=== PATIENT | male | born 1950 | race Caucasian/White ===

== ENCOUNTER 2023-03-27 19:05 | Inpatient (IN) | payer MEDICARE ==
[~2023-03-27] VITALS: Ht 172.7 cm; Wt 97.5 kg
[2023-03-27 19:12] VITALS: BP 114/77; PULSE 119; RESP 44; O2SAT 96
--- NOTE | 2023-03-27 19:17 | NUR ---
KEYA FROM HOME FOR ALTERED MENTAL STATUS, LAST KNOWN WELL 1700 03/26/23 SOB. PMH: DM MEDS: METFORMIN
[2023-03-27] MEDS ORDERED: NACL 0.9% 2,000 ML IV ONE (19:20)
--- NOTE | 2023-03-27 19:29 | NUR ---
RECEIVED IN BED 10, BIBAllison, FROM HOME FOR ALTERED MENTAL STATUS, LAST KNOWN WELL 1700 03/26/23 SOB. PMH: DM MEDS: METFORMIN
[2023-03-27] MEDS ORDERED: cefTRIAXone 1,000 MG VIAL ONE (19:31)
--- NOTE | 2023-03-27 19:50 | NUR ---
TO CT VIA [facility]
--- NOTE | 2023-03-27 19:57 | NUR ---
RETURNED FROM CT
--- NOTE | 2023-03-27 20:04 | NUR ---
XRAY AT BEDSIDE
--- NOTE | 2023-03-27 20:17 | NUR ---
2ND IV ESTABLISHED, LABS AND BLOOD CULTURES DRAWN
[2023-03-27 20:33] LABS: BASOPHILS % (AUTO) 0.1 % (0.0-2.0); HEMATOCRIT 41.1 % (36-52); HEMOGLOBIN 13.8 g/dL (12.0-18.0); LYMPHOCYTES # (AUTO) 0.5 K/uL (2.0-11.5); LYMPHOCYTES % (AUTO) 2.8 % (20.5-51.1); MEAN CORPUSCULAR HEMOGLOBIN 30 pg (27-31); MEAN CORPUSCULAR HGB CONC 34 g/dL (33-37); MEAN CORPUSCULAR VOLUME 88.7 fL (80-94); MONOCYTES # (AUTO) 0.5 K/uL (0.8-1.0); MONOCYTES % (AUTO) 3.1 % (1.7-9.3); PLATELET COUNT (AUTO) 185 K/uL (140-450); RED BLOOD CELL COUNT(AUTO) 4.64 MIL/uL (4.20-6.10); RED CELL DISTRIBUTION WIDTH 14.7 % (11.6-13.7); WHITE BLOOD COUNT (AUTO) 17.1 K/uL (4.8-10.8)
[2023-03-27 20:57] LABS: ALBUMIN 2.2 g/dL (3.4-5.0); ANION GAP 23.1 (8-16); ASPARTATE AMINOTRANSFERASE 709 U/L (15-37); CARBON DIOXIDE 13.4 mmol/L (21-32); CHLORIDE 113 mmol/L (98-107); CREATININE 3.7 mg/dL (0.6-1.3); GLUCOSE 166 mg/dL (74-106); POTASSIUM 3.5 mmol/L (3.5-5.1); SODIUM SERUM 146 mmol/L (136-145); TOTAL BILIRUBIN 0.7 mg/dL (0.0-1.0); UREA NITROGEN, BLOOD 56 mg/dL (7-18)
[2023-03-27 21:10] LABS: SALICYLATE 6.8 mg/dL (2.8-20.0)
[2023-03-27] MEDS ORDERED: NACL 0.9% 1,000 ML IV ONE ×2 (21:30→22:05)
[2023-03-27 21:40] LABS: APPEARANCE,URINE CLOUDY (CLEAR); BILIRUBIN,URINE 1+ (NEGATIVE); BLOOD, URINE 3+ (NEGATIVE); COLOR,URINE YELLOW (YELLOW); LEUKOCYTE ESTERASE ,URINE 2+ (NEGATIVE); NITRITE, URINE NEGATIVE (NEGATIVE); UGLUCOSE NEGATIVE (NEGATIVE)
--- NOTE | 2023-03-27 21:45 | NUR ---
FAMILY AT BEDSIDE
[2023-03-27 21:53] LABS: CALCIUM OXALATE CRYSTALS,UR None Seen /HPF (None Seen); COARSE GRANULAR CASTS,URINE None Seen /LPF (None Seen); FINE GRANULAR CASTS,URINE None Seen /LPF (None Seen); HYALINE CASTS, URINE None Seen /LPF (None Seen); OTHER CASTS, URINE None Seen /LPF (None Seen); OTHER CRYSTALS,URINE None Seen /HPF (None Seen); RED BLOOD CELL CASTS,URINE None Seen /LPF (None Seen); TRICHOMONAS,URINE None Seen /HPF (None Seen); TRIPLE PHOSPHATE CRYSTAL,UR None Seen /HPF (None Seen); URIC ACID CRYSTALS,URINE None Seen /HPF (None Seen); URINE AMORPHOUS URATE None Seen /HPF (None Seen); WAXY CASTS,URINE None Seen /LPF (None Seen); YEAST,URINE None Seen /HPF (None Seen)
[2023-03-27 22:01] LABS: CKMB RELATIVE INDEX 2.1 (0.0-2.5); CREATINE KINASE MB 408.3 ng/mL (0-3.6)
--- NOTE | 2023-03-27 22:01 | NUR ---
Dr. Rivera examining patient.
[2023-03-27 22:03] LABS: ACETAMINOPHEN < 0.5 ug/ml (10-30)
[2023-03-27] MEDS ORDERED: ASPIRIN 325 MG TAB PO ONE (22:15)
[2023-03-27 22:31] LABS: BARBITURATE, URINE NEGATIVE ng/ml (NEG <=200); BENZODIAZEPINE, URINE NEGATIVE ng/mL (NEG <=200); CANNABINOID, URINE NEGATIVE ng/mL (NEG <=50); COCAINE, URINE NEGATIVE ng/mL (NEG <=300); OPIATE, URINE NEGATIVE ng/mL (NEG <=2000); PHENCYCLIDINE SCREEN,URINE NEGATIVE ng/mL (NEG <=25)
[2023-03-27] MEDS ORDERED: LORazepam 2 MG/ML VIAL IVP PRN (22:45)
[2023-03-27] MEDS ORDERED: NACL 0.9% 1,000 ML IV SCH (22:45)
[2023-03-27] MEDS ORDERED: ACETAMINOPHEN 325 MG TAB PO PRN (22:45)
[2023-03-27] MEDS ORDERED: MORPHINE SULFATE 2 MG/ML SYR IVP PRN (22:45)
[2023-03-27] MEDS ORDERED: HYDROcodone/APAP 5/325 MG 1 TAB TAB PO PRN (22:45)
[2023-03-27] MEDS ORDERED: ONDANSETRON 4 MG/2 ML VIAL IVP PRN (22:45)
--- NOTE | 2023-03-27 23:00 | NUR ---
Ham lizama in [facility] - 03/27/23 at 2303 by [employer], DR. GRIFFITHS, SPEAKING WITH PT VIA REMOTE COMMUNICATION
[2023-03-28] VITALS (17 sets, daily range): BP systolic 94–126; BP diastolic 54–87; PULSE 105–149; RESP 24–40; TEMP 96.7–97.6; O2SAT 93–97
--- NOTE | 2023-03-28 00:06 | NUR ---
PT TAKEN TO CT
--- NOTE | 2023-03-28 01:00 | NUR ---
REPOSITIONED FOR COMFORT.
--- NOTE | 2023-03-28 04:00 | NUR ---
AWAKE, ASKING FOR WATER. PT INFORMED OF BEING NPO. ASSISTED WITH POSITIONING FOR COMFORT
[2023-03-28] MEDS ORDERED: PIPERACILLIN/TAZOBACTAM 2.25 GM in DEXTROSE 5% 50 ML IV SCH (05:00)
--- NOTE | 2023-03-28 06:00 | NUR ---
LAB AT BEDSIDE
[2023-03-28] MEDS ORDERED: PIPERACILLIN/TAZOBACTAM 2.25 GM VIAL IV ONE ×2 (06:05→07:51)
[2023-03-28 06:47] LABS: EOSINOPHILS % (AUTO) 0.2 % (0.0-4.0); HEMATOCRIT 41.2 % (36-52); HEMOGLOBIN 13.6 g/dL (12.0-18.0); LYMPHOCYTES # (AUTO) 0.4 K/uL (2.0-11.5); LYMPHOCYTES % (AUTO) 3.2 % (20.5-51.1); MEAN CORPUSCULAR HEMOGLOBIN 30 pg (27-31); MEAN CORPUSCULAR HGB CONC 33 g/dL (33-37); MEAN CORPUSCULAR VOLUME 89.5 fL (80-94); MONOCYTES # (AUTO) 0.4 K/uL (0.8-1.0); MONOCYTES % (AUTO) 3.2 % (1.7-9.3); NEUTROPHILS # (AUTO) 12.6 K/uL (1.8-7.7); NEUTROPHILS % (AUTO) 93.4 % (42.2-75.2); PLATELET COUNT (AUTO) 165 K/uL (140-450); RED CELL DISTRIBUTION WIDTH 14.9 % (11.6-13.7); WHITE BLOOD COUNT (AUTO) 13.5 K/uL (4.8-10.8)
[2023-03-28 07:01] LABS: ALBUMIN 2.1 g/dL (3.4-5.0); ANION GAP 26.1 (8-16); ASPARTATE AMINOTRANSFERASE 685 U/L (15-37); CARBON DIOXIDE 12.4 mmol/L (21-32); CHLORIDE 111 mmol/L (98-107); CREATININE 4.9 mg/dL (0.6-1.3); GLUCOSE 212 mg/dL (74-106); MAGNESIUM 2.6 mg/dL (1.8-2.4); PHOSPHORUS 7.4 mg/dL (2.5-4.9); POTASSIUM 4.5 mmol/L (3.5-5.1); SODIUM SERUM 145 mmol/L (136-145); TOTAL BILIRUBIN 0.6 mg/dL (0.0-1.0)
[2023-03-28 07:02] LABS: UREA NITROGEN, BLOOD 75 mg/dL (7-18)
--- NOTE | 2023-03-28 08:33 | NUR ---
PAGED DR MCMULLEN REGARDING PTS CONDITION.
[2023-03-28] MEDS ORDERED: AZITHROMYCIN 250 MG TAB PO SCH (09:00)
--- NOTE | 2023-03-28 09:06 | NUR ---
PATIENT HAS BEEN SCREENED AND CATEGORIZED MODERATE NUTRITION RISK. PATIENT WILL BE SEEN WITHIN 3-5 DAYS OF ADMISSION. 03/30/23-04/01/[address]
--- NOTE | 2023-03-28 09:15 | NUR ---
DR MCNEIL AT BEDSIDE TO SEE PT
[2023-03-28] MEDS ORDERED: ceFAZolin 1,000 MG VIAL ONE (09:55)
--- NOTE | 2023-03-28 10:45 | NUR ---
RT AT BEDSIDE FOR ABG
--- NOTE | 2023-03-28 11:13 | NUR ---
RELAYED ABG RESULTS TO ER DOCTOR. CALLED AND LEFT MESSAGE FOR DR. CARVAJAL AND SENT MESSAGE TO DR RODRIGUEZ. WAS INSTRUCTED CALL FIELD SERVICER ELEVATOR ADJUSTER. LEFT MESSAGE FOR DR. LUIS. WAITING FOR CALL BACK.
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
--- NOTE | 2023-03-28 11:22 | NUR ---
PT EKG COMPLETED, AFIB RVR, PAGED DR CHRIS FOR FURTHER ORDERS.
--- NOTE | 2023-03-28 11:25 | NUR ---
TRANSFERRED TO ICU-3; REMOVED FROM VAPOTHERM HIGH FLOW PLACED ON SUPPLEMENTAL OXYGEN AT 4 LPM VIA NS SATURATION 96% HR 135; TOLERATED TRANSFER WELL WITHOUT COMPLICATIONS NOTED
--- NOTE | 2023-03-28 11:25 | NUR ---
Arrived in ICU with RN, and EMT, pt. on transfer monitor. No acute distress. Primary RN Olga and charge nurse at bedside. Pt. with no acute distress.
[2023-03-28] MEDS ORDERED: DILTIAZEM 25 MG/5 ML VIAL IVP SCH (11:29)
--- NOTE | 2023-03-28 11:31 | NUR ---
Patient will be admitted to care of MD SONG . Admited to ICU. Will go to room BED 3. Belongings list completed. Report to BALJIT Espinoza.
--- NOTE | 2023-03-28 11:32 | NUR ---
PLACED BACK ON A VAPOTHERM HIGH FLOW NASAL CANNULA
[2023-03-28] MEDS: SODIUM BICARBONATE 8.4% 100 MEQ in NACL 0.45% 1,000 ML IV SCH (12:37)
[2023-03-28] MEDS: AZITHROMYCIN 500 MG in DEXTROSE 5% 250 ML IV SCH (12:38)
--- NOTE | 2023-03-28 13:50 | NUR ---
DR. TONEY LUIS ROUNDING AT BEDSIDE; REVIEWED ABG RESULTS AND CXR; [facility] DR. LUIS: BIPAP PRN; HHN THERAPY DUONEB Q6 AND PRN SOB/WHEEZE; OXYGEN SATURATION GREATER THAN 90%; ABG AM (03/28) 0800
--- NOTE | 2023-03-28 13:50 | NUR ---
Dr. Jordan at bedside rounding on pt. MD ordered 2 amps of Bicarb 100 mEq IV push now. See eMar for details. Pt. with no change in status.
[2023-03-28] MEDS ORDERED: SODIUM BICARBONATE 8.4% PFS 50 MEQ/50 ML SYR IVP ONE (14:12)
[2023-03-28] MEDS ORDERED: SODIUM BICARBONATE 8.4% PFS 50 MEQ/50 ML SYR IVP SCH (14:12)
[2023-03-28] MEDS ORDERED: ALBUTEROL SULFATE/IPRATROPIU 3 ML SOL IH PRN (14:40)
[2023-03-28] MEDS: DILTIAZEM 125 MG in DEXTROSE 5% 100 ML IV SCH ×2 (15:11→15:12)
[2023-03-28 15:34] LABS: URINE TOTAL PROTEIN 286.9 mg/dL (0-12)
[2023-03-28] MEDS ORDERED: DEXTROSE 50% 50 ML SYR IVP PRN (15:40)
--- NOTE | 2023-03-28 15:54 | NUR ---
[facility] V60 BIPAP PLACED AT BEDSIDE; HHN PRN THERAPY GIVEN AT THIS TIME; SALES AND MARKETING VICE PRESIDENT TO MONITOR
[2023-03-28] MEDS: BLOOD GLUCOSE MONITORING 1 DEV DEV FS SCH ×2 (16:37→21:05)
[2023-03-28] MEDS: INSULIN LISPRO SLIDING SCALE 100 UNITS/ML VIAL SUBQ PRN (16:40)
[2023-03-28] MEDS ORDERED: AMIODARONE 150 MG in DEXTROSE 5% 100 ML IV SCH (16:50)
[2023-03-28] MEDS: AMIODARONE 450 MG in DEXTROSE 5% 250 ML IV SCH (17:12)
--- NOTE | 2023-03-28 19:15 | NUR ---
closing Pt remains on amiodarone drip, 6 hour ame 2317. Updates given earlier to pt's son Malcolm Thomas Endorsed plan of care to RN.
[2023-03-28] MEDS: ALBUTEROL SULFATE/IPRATROPIU 3 ML SOL IH SCH (19:16)
--- NOTE | 2023-03-28 19:20 | NUR ---
RECEIVED REPORT FROM SCOTT SMILEY DAYSHIFT NURSE. PT IS AWAKE, DROWSY AND ORIENTED 2X. PT IS ON HIGH FLOW 40L/MIN FIO2 35% O2SAT 94% . AFIB NOTED ON THE MONITOR. ABDOMEN IS LARGE AND SOFT. PERIPHERAL IV NOTED TO R WRIST WITH SODIUM BICARBONATE IN 1/2 NS AT 75ML/HR AND R FOREARM IV ACCESS WITH NS AT 5ML/HR AND AMIODARONE 450MG AT 1 MG/MIN. PT HAS WILSON CATHETER DRAINING DARK YELLOW. MULTIPLE WOUNDS NOTED. SEE ASSESSMENT NOTES. WILL CONTINUE TO MONITOR PT.
--- NOTE | 2023-03-28 21:30 | NUR ---
PT PASSED SMALL AMOUNT OF BROWN SOFT STOOL. CLEANED AND REPOSITIONED. KEPT COMFORTABLE.
--- NOTE | 2023-03-28 23:15 | NUR ---
AMIODARONE DRIP DECREASED TO 0.5MG/MIN PER PROTOCOL. AFIB STILL NOTED. HR 28
[2023-03-29] VITALS (35 sets, daily range): BP systolic 93–129; BP diastolic 57–81; PULSE 91–125; RESP 5–37; TEMP 97–98.6; O2SAT 91–99
[2023-03-29] MEDS: ALBUTEROL SULFATE/IPRATROPIU 3 ML SOL IH SCH ×4 (00:43→19:00)
[2023-03-29] MEDS: SODIUM BICARBONATE 8.4% 100 MEQ in NACL 0.45% 1,000 ML IV SCH ×2 (03:36→19:06)
[2023-03-29] MEDS: AMIODARONE 450 MG in DEXTROSE 5% 250 ML IV SCH ×2 (03:55→22:30)
--- NOTE | 2023-03-29 07:00 | NUR ---
RECEIVED PT ON HFNC 35%,40L,33 DEGREE. SATURATION 96% NO DISTRESS NOTED. ABG SCHEDULED FOR 0800. WILL CONTINUE TO MONITOR.
--- NOTE | 2023-03-29 07:20 | NUR ---
ENDORSED PT TO DAYSHIFT NURSE FOR CONTINUITY OF CARE. ALL QUESTIONS ANSWERED.
[2023-03-29] MEDS: BLOOD GLUCOSE MONITORING 1 DEV DEV FS SCH ×4 (07:30→21:00)
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
--- NOTE | 2023-03-29 08:05 | NUR ---
ABG RESULTS CHARTED AND GIVEN TO EDISCOVERY PROJECT MANAGER.
[2023-03-29 10:26] LABS: PROTHROMBIN TIME 11.3 secs (10.8-13.4)
[2023-03-29 10:28] LABS: ALBUMIN 1.7 g/dL (3.4-5.0); ANION GAP 24.5 (8-16); ASPARTATE AMINOTRANSFERASE 455 U/L (15-37); CARBON DIOXIDE 16.2 mmol/L (21-32); CHLORIDE 105 mmol/L (98-107); GLUCOSE 205 mg/dL (74-106); POTASSIUM 4.7 mmol/L (3.5-5.1); SODIUM SERUM 141 mmol/L (136-145); TOTAL BILIRUBIN 0.5 mg/dL (0.0-1.0)
[2023-03-29 10:29] LABS: CREATININE 6.4 mg/dL (0.6-1.3); UREA NITROGEN, BLOOD 112 mg/dL (7-18)
--- NOTE | 2023-03-29 10:30 | NUR ---
CALL DR. VANESSA REPORT THE LAB RESULT, WILL COME TO SEE THE PATIENT.
[2023-03-29] MEDS ORDERED: VANCOMYCIN PER PHARMACY MC PRN (10:45)
--- NOTE | 2023-03-29 10:48 | NUR ---
HFNC ON STANDBY. PER DR. LUIS PT PLACED ON 15L CURAPLEX. CALL LIGHT WITHIN REACH.WILL CONTINUE TO MONITOR.
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
[2023-03-29] MEDS ORDERED: VANCOMYCIN 1,500 MG in DEXTROSE 5% 500 ML IV SCH (12:00)
--- NOTE | 2023-03-29 13:23 | NUR ---
03/29/23 RD INITIAL ASSESSMENT COMPLETED PLEASE REFER TO NUTRITION ASSESSMENT UNDER CARE ACTIVITY FOR ESTIMATED NUTRITIONAL NEEDS. 1. CONTINUE NPO DIET TOLERATED AND RD WILL BE PENDING SWALLOW EVALUTION TO SEE WHAT TEXTURE PATIENT WILL HAVE. RD RECOMMENDS CCHO 60GMS/CARDIAC ONCE MEDICALLY APPROPRIATE. 2. RD RECOMMENDS PROSOURCE BID FOR WOUNDS WHICH WILL PROVIDE 120 CALORIES AND 30 GRAMS OF PROTEIN ONCE MEDICALLY APPROPRIATE. 3. RD TO FOLLOW-UP 2-3 DAYS, HIGH RISK PHUONG BEN[address]TE[address] RD
[2023-03-29] MEDS: AZITHROMYCIN 500 MG in DEXTROSE 5% 250 ML IV SCH (14:21)
[2023-03-29] MEDS: ECOTRIN 81 MG TABEC PO SCH (14:26)
--- NOTE | 2023-03-29 14:51 | NUR ---
FNS CONSULT FOR PATIENT FOR WOUNDS/PRESSURE ULCER RECEIVED ON 03/29/23. PATIENT WAS SEEN BY RD TODAY 03/29/23 AND NUTRITIONAL WOUND CARE RECOMMENDATION GIVEN, PENDING SWALLOW EVALUATION. PHUONG BEN[address]
[2023-03-29] MEDS ORDERED: SILVER SULFADIAZINE 1% 50 GM JAR TP SCH (16:00)
[2023-03-29] MEDS ORDERED: SILVER SULFADIAZINE 1% 50 GM JAR TP PRN (16:15)
--- NOTE | 2023-03-29 17:18 | NUR ---
TITRATED 15L CURAPLEX NASAL CANNULA TO 9L CURAPLEX. SATURATION 97%. CALL LIGHT WITHIN REACH. WILL CONTINUE TO MONITOR.
--- NOTE | 2023-03-29 18:18 | NUR ---
Patient remains the same with no decline in his status, denies pain/discomfort. Patient seen on am rounds the Cost Controller and bedside report given 1200: Hi Flow oxygen discontinued and humidified oxygen via nasal cannual @ 12LPM in place. 12:38: Call received via the telephone from Kevin Fast Food Cook from [facility], update given and patient's tra\nsfer on hold, pending HD access placed and HD treatment started. 13:50: Patient's son spoke with Dr Owen and two nurse verbal consent for HD cath placement and HD treatment; verbalized understanding
[2023-03-29] MEDS ORDERED: AMIODARONE 450 MG/9 ML VIAL IV ONE (19:22)
--- NOTE | 2023-03-29 19:25 | NUR ---
DR. CONNELLY BEDSIDE, INSERTING CATHETER, STERILE FIELD PRESENT. PT IS SATURATING 97% ON 9L, IN NO DISTRESS, RN AWARE OF PRN TREATMENT OPTION
--- NOTE | 2023-03-29 19:26 | NUR ---
Patient remains the same with no decline in his status. Bedside report given to the oncoming nurse
[2023-03-29] MEDS: INSULIN LISPRO SLIDING SCALE 100 UNITS/ML VIAL SUBQ PRN (22:43)
[2023-03-30] VITALS (29 sets, daily range): BP systolic 87–124; BP diastolic 49–68; PULSE 66–117; RESP 9–33; TEMP 96.2–98; O2SAT 92–96
[2023-03-30] MEDS: ALBUTEROL SULFATE/IPRATROPIU 3 ML SOL IH SCH ×4 (02:11→19:18)
[2023-03-30 05:34] LABS: BASOPHILS % (AUTO) 0.1 % (0.0-2.0); EOSINOPHILS % (AUTO) 0.1 % (0.0-4.0); HEMATOCRIT 34.9 % (36-52); HEMOGLOBIN 11.7 g/dL (12.0-18.0); LYMPHOCYTES # (AUTO) 0.8 K/uL (2.0-11.5); MEAN CORPUSCULAR HEMOGLOBIN 30 pg (27-31); MEAN CORPUSCULAR HGB CONC 34 g/dL (33-37); MEAN CORPUSCULAR VOLUME 88.2 fL (80-94); MONOCYTES # (AUTO) 0.3 K/uL (0.8-1.0); MONOCYTES % (AUTO) 2.8 % (1.7-9.3); NEUTROPHILS # (AUTO) 10.6 K/uL (1.8-7.7); PLATELET COUNT (AUTO) 137 K/uL (140-450); RED BLOOD CELL COUNT(AUTO) 3.96 MIL/uL (4.20-6.10); WHITE BLOOD COUNT (AUTO) 11.8 K/uL (4.8-10.8)
[2023-03-30 05:47] LABS: PROTHROMBIN TIME 11.3 secs (10.8-13.4)
[2023-03-30 05:49] LABS: ANION GAP 16.9 (8-16); CARBON DIOXIDE 27.1 mmol/L (21-32); CHLORIDE 98 mmol/L (98-107); GLUCOSE 138 mg/dL (74-106); SODIUM SERUM 138 mmol/L (136-145)
[2023-03-30 05:56] LABS: CREATININE 0.5 mg/dL (0.6-1.3); UREA NITROGEN, BLOOD 75 mg/dL (7-18)
--- NOTE | 2023-03-30 07:00 | NUR ---
RECEIVED REPOSRT FROM JOE SMILEY NIGHT PT ADMIT FOR SANTA AND SEPTIS . PT IS ALERT AND ORIENTED X 4 PT MINIMAL STRENGTH 4 EXTREMITY. NOTED PT HAS NO C/O CHEST PAIN NO SOB PT VS 96.2 TMP 67HR, 31 RR 94$ PT HS ON NC 5 LPM PT IS SR ON THE MONITOR PT IS GENERALIZED ANASARCA . PT IS NPO. PT HAS WILSON CATH PATENT FRAING DONG URINE. PT IS HD PATIENT HAS HD YESTERDAY ACCESS ON THE [facility] CATH INTACT. PT HAS IV PERIPHERAL RIGHT ARM AND RIGHT FA. PT HAS BICARB 75ML/HR PT HAS NON INTACT SKIN ON LEAFT ARM, RIGHT ARM AND ROSEMARY FEE. WITH DRESSING . KEEP PT SAFE AND COMFOTABLE. CONT TO MONITOR.
[2023-03-30] MEDS: BLOOD GLUCOSE MONITORING 1 DEV DEV FS SCH ×4 (09:05→21:31)
[2023-03-30] MEDS: ECOTRIN 81 MG TABEC PO SCH (09:09)
[2023-03-30] MEDS: AZITHROMYCIN 500 MG in DEXTROSE 5% 250 ML IV SCH (10:00)
[2023-03-30] MEDS: SODIUM BICARBONATE 8.4% 100 MEQ in NACL 0.45% 1,000 ML IV SCH ×2 (10:38→22:40)
[2023-03-30] MEDS: INSULIN LISPRO SLIDING SCALE 100 UNITS/ML VIAL SUBQ PRN (11:34)
--- NOTE | 2023-03-30 11:47 | NUR ---
Reimbursement Consultant ACID WASH OPERATOR called pts. son to conduct a discharge planning assessment due to pt. Altered Mental Status. Please refer to notes.
[2023-03-30] MEDS ORDERED: VANCOMYCIN 1.25GM PREMIX 250 ML IV SCH (12:00)
[2023-03-30] MEDS ORDERED: SILVER SULFADIAZINE 1% 50 GM JAR TP SCH (13:00)
--- NOTE | 2023-03-30 13:08 | NUR ---
Nephro MD making rounds, bedside report given, MD to review chart and place orders.
--- NOTE | 2023-03-30 14:24 | NUR ---
[facility] CM called unit, updates given, per CM at [facility] (Mik) she stated plan is for patient to transfer over to [facility].
--- NOTE | 2023-03-30 14:33 | NUR ---
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 ON 3 LITERS NC NOW .IN NSR HR 60-70S.OFF AMIODARONE DRIP AND PO 200 MG BID STARTED.COVID TEST (-).03/27 CXR SHOWS RIGHT BASILAR PNEUMONIA 03/29 CXR- PROBABLE WITH INTERSTITIAL PULM EDEMA.CT OF HEAD UNREMARKABLE.JEREMIAH CATH WAS INSERTED 03/29 AND HAD HEMODIALYSIS.NEPHRO ON BOARD, PATIENT IS STABLE FOR TRANSFER TO [facility] .FAXED CLINICALS AND TALKED TO LILLIAM LAYNE CM.AWAITING FOR BED AVAILABILITY.CM TO FOLLOW.
--- NOTE | 2023-03-30 18:34 | NUR ---
DR. YOUNG CAME IN AND ASSESS PT AND ID CHART REVIEW NEW ORDER FOR AMIODARONE 400 MG PO BID MD WILL PUT ORDER.
--- NOTE | 2023-03-30 19:41 | NUR ---
I CALLED PAYROLL OFFICER, ISAMAR TO MAKE A FOLLOW UP WITH PT. TRANSFERRING TO THEIR [facility]. ACCORDING TO ISAMAR, THERE IS NOW ACCEPTING DOCTOR WHICH IS DR. BRITTNEY ALCALA. HOWEVER NO BED YET. THEY WILL CALL IF BED IS AVAILABLE. REPORTED TO NSG. DOOR TO DOOR SELLING AGENT. WILL WAIT FOR THE BED ROOM#.
--- NOTE | 2023-03-30 19:47 | NUR ---
GAVE REPORT TO GUI SMILEY FOR CONTINUITY OF CARE
--- NOTE | 2023-03-30 19:50 | NUR ---
RECEIVED PATIENT AWAKE IN BED WELL RESTED. ABLE TO COMMUNICATE WITH HIS NEEDS. NO COMPLAINTS OF PAIN AT THIS TIME. IVF OF SODIUM BICARBONATE 8.4% 100 MEQ IN 1/2 NS 1L INFUSING 75 MLS/HR TO RIGHT FOREARM. WILSON CATHETER DRAINING TO GRAVITY WITH SCANT URINE OUTPUT. ALL SAFETY PRECAUTIONS ARE IN PLACE, BED WHEELS LOCKED IN LOW POSITION. CALL LIGHT WITHIN REACH.
--- NOTE | 2023-03-30 20:26 | NUR ---
DAISY MOSHER CALLED AND MAKING A FOLLOW UP IF [facility] GAVE US A BED (ROOM#), TO TRANSFER PT. I REPORTED THAT PT. STILL WAITING FOR THE BED, BUT WITH ACCEPTING MD, DR. BRITTNEY ALCALA. NOMI STATED IF WE HAVE A QUESTIONS, JUST GIVE HER A CALL.
[2023-03-30] MEDS ORDERED: APIXABAN 2.5 MG TAB PO SCH (21:00)
[2023-03-30] MEDS ORDERED: AMIODARONE 200 MG TAB PO SCH ×2 (21:00)
--- NOTE | 2023-03-30 21:32 | NUR ---
ALL SCHEDULED MEDICATIONS DUE ADMINISTERED ORDERED.
--- NOTE | 2023-03-30 23:22 | NUR ---
REPORT GIVEN TO ROSSANA ESCALANTE, ALL QUESTIONS ANSWERED.
--- NOTE | 2023-03-30 23:26 | NUR ---
PATIENT SON BENNY DUPREE MADE AWARE OF THE TRANSFER TO [facility] AND WAS THANKFUL.
[2023-03-31] VITALS: BP 120/79; PULSE 82; RESP 22; TEMP 97.5; O2SAT 94
--- NOTE | 2023-03-31 00:23 | NUR ---
TRANSFERRED PATIENT TO [facility] IN STABLE CONDITION EMPLOYEE ADVISER BY 2 [facility] STAFF.
== END 2023-03-31 00:23 | disposition short-term general hospital (02) | DRG 871 ==
LOC: MED 19:05 → EDBD 19:05 → MTU 22:53 → MIC 03-28 11:26
PROVIDERS: ADMIT Student in an Organized Health Care Education/Training Program; ATTEND Student in an Organized Health Care Education/Training Program
PROC: 02H633Z Insertion of Infusion Device into Right Atrium, Percutaneous Approach (ICD-10-PCS; principal; 2023-03-29)
PROC: B548ZZA Ultrasonography of Superior Vena Cava, Guidance (ICD-10-PCS; 2023-03-29)
PROC: 5A1D70Z Performance of Urinary Filtration, Intermittent, Less than 6 Hours Per Day (ICD-10-PCS; 2023-03-29)
DX: A41.9 Sepsis, unspecified organism (principal); G93.41 Metabolic encephalopathy; J96.01 Acute respiratory failure with hypoxia; J69.0 Pneumonitis due to inhalation of food and vomit; N17.9 Acute kidney failure, unspecified; E87.21 Acute metabolic acidosis; M62.82 Rhabdomyolysis; E87.0 Hyperosmolality and hypernatremia; I24.8 Other forms of acute ischemic heart disease; E86.0 Dehydration; Z20.822 Contact with and (suspected) exposure to COVID-19
CPT/HCPCS: 36415; 36600; 70450; 71045; 72125; 76700; 80048; 80053; 80202; 80305; 81001; 82550; 82553; 82570; 82803; 83605; 83690; 83735; 83880; 83930; 84100; 84484; 85025; 85379; 85610; 85730; 87040; 87081; 87086; 93005; 93971; 94640; 96361; 96365; 99285; G0480; J0282; J0456; J0690; J0696; J1644; J1815; J2060; J2543; J3370; J3372; J3490; J7030; J7060; Q0092